=== PATIENT | female | born 1980 | race Caucasian/White ===

== ENCOUNTER 2017-12-16 01:14 | Emergency (ER) | payer OTHER ==
--- NOTE | 2017-12-16 01:28 | PDOC ---
History of Present Illness - General Stated Complaint: FEVER Time Seen by Provider: 12/16/17 01:28 - History of Present Illness Initial Comments: 12/16/17 01:28 Ms. Paz is a 37 yo female w/ pmh of anemia, recently evaluated 12/06/17 for ear pain and headache who presents w/ complaints of 1 day history of left sided ear pain with intermittent fevers/chills for the past day. She reports she took ofloxacin otic drops for 8 days following her 12/06 visit until she ran out. She is currently taking Amoxicillin 500mg TID (7 day course) in preparation for a dental procedure. She took tylenol around midnight tonight for her fever. The patient denies chest pain, shortness of breath, headache and dizziness. Denies nausea, vomit, diarrhea and constipation. Denies dysuria, frequency, urgency and hematuria. Allergies: NKDA Past History - Past Medical History Allergies/Adverse Reactions: Allergies Allergy/AdvReac Type Severity Reaction Status Date / Time No Known Allergies Allergy Verified 12/16/17 01:19 Home Medications: Ambulatory Orders No Home Medications 0 dose .ROUTE UTDICT 05/01/12 Naproxen [Naprosyn -] 500 mg PO BID PRN #14 tablet 10/11/14 Ibuprofen [Motrin -] 400 mg PO Q6H PRN #28 tablet 06/13/15 Metoclopramide HCl [Reglan] 10 mg PO Q6H PRN #15 tablet 06/13/15 Fluticasone Propionate [Flonase Allergy Relief] 15.8 ml NS PRN PRN #1 bottle 08/20 Ofloxacin Otic [Floxin Otic -] 10 drop OT BID 10 Days #1 bottle 12/05/17 Acetic Acid 2% Otic Soln [Vosol 2% Ear Drops -] 3 drop AU TID PRN #1 bottle 09/20 Acetic Acid 2% Otic Soln [Vosol 2% Ear Drops -] 3 drop AU TID PRN #1 bottle Anemia: Yes Asthma: No Cancer: No Cardiac Disorders: No COPD: No Diabetes: No HTN: No Seizures: No Thyroid Disease: No - Immunization History Immunization Up to Date: Yes - Suicide/Smoking/Psychosocial Hx Smoking Status: No Smoking History: Never smoked Have you smoked in the past 12 months: No Number of Cigarettes Smoked Daily: 0 Hx Alcohol Use: No Drug/Substance Use Hx: No Substance Use Type: None Hx Substance Use Treatment: No Review of Systems - Review of Systems Comments:: 12/16/17 01:53 GENERAL/CONSTITUTIONAL: +Subjective fever/chills. No weakness. HEAD, EYES, EARS, NOSE AND THROAT: No change in vision. No ear pain or discharge. No sore throat. CARDIOVASCULAR: No chest pain or shortness of breath RESPIRATORY: No cough, wheezing, or hemoptysis. GASTROINTESTINAL: No nausea, vomiting, diarrhea or constipation. GENITOURINARY: No dysuria, frequency, or change in urination. MUSCULOSKELETAL: No joint or muscle swelling or pain. No neck or back pain. SKIN: No rash NEUROLOGIC: No headache, vertigo, loss of consciousness, or change in strength/ sensation. ENDOCRINE: No increased thirst. No abnormal weight change HEMATOLOGIC/LYMPHATIC: No anemia, easy bleeding, or history of blood clots. ALLERGIC/IMMUNOLOGIC: No hives or skin allergy. *Physical Exam - Physical Exam Comments: 12/16/17 01:54 GENERAL: Awake, alert, and fully oriented, in no acute distress HEAD: No signs of trauma, normocephalic, atraumatic EYES: PERRLA, EOMI, sclera anicteric, conjunctiva clear ENT: +Left EAC inflammed appearing. TM's normal. Auricles normal inspection, hearing grossly normal, nares patent, oropharynx clear without exudates. Moist mucosa NECK: Normal ROM, supple, no lymphadenopathy, JVD, or masses LUNGS: No distress, speaks full sentences, clear to auscultation bilaterally HEART: Regular rate and rhythm, normal S1 and S2, no murmurs, rubs or gallops, peripheral pulses normal and equal bilaterally. ABDOMEN: Soft, nontender, normoactive bowel sounds. No guarding, no rebound. No masses EXTREMITIES: Normal inspection, Normal range of motion, no edema. No clubbing or cyanosis. NEUROLOGICAL: Cranial nerves II through XII grossly intact. Normal speech, normal gait, no focal sensorimotor deficits SKIN: Warm, Dry, normal turgor, no rashes or lesions noted. Medical Decision Making - Medical Decision Making 12/16/17 01:58 Ms. Paz is a 37 yo female w/ pmh as described who presents for evaluation of ear pain with fever/chills. Patient currently taking ABX as described; reports relief from symptoms with Acetic Acid otic solution. Repeat Rx sent to patient's pharmacy, will d/c for outpatient ENT follow-up for further evaluation. *DC/Admit/Observation/Transfer Diagnosis at time of Disposition: Fever and chills Ear pain Qualifiers: Laterality: left Qualified Code(s): H92.02 - Otalgia, left ear - Discharge Dispostion Disposition: HOME - Prescriptions Prescriptions: Acetic Acid 2% Otic Soln [Vosol 2% Ear Drops -] 3 drop AU TID PRN #1 bottle PRN Reason: Pain - Referrals Referrals: Zena Aviles [Primary Care Provider] - - Patient Instructions Printed Discharge Instructions: DI for Fever (Symptom) -- Adult Additional Instructions: Please follow-up with ENT in 1-2 days for further evaluation. Take all medications as proscribed. Return to ER if any increase in pain, fever, chills, difficulty hearing, or other concerning symptoms. - Post Discharge Activity
[2017-12-16 01:50] VITALS: BP 109/81; PULSE 105; TEMP 99.5
--- NOTE | 2017-12-16 01:55 | PDOC ---
Attending Attestation - Resident Resident Name: Darius Mckeon - ED Attending Attestation I have performed the following: I have examined & evaluated the patient, The case was reviewed & discussed with the resident, I agree w/resident's findings & plan, Exceptions are as noted - HPI HPI: 12/18/17 17:37 Ms. Paz is a 37 yo female w/ pmh of anemia, recently evaluated 12/06/17 for ear pain and headache, started on ofloxacin otic drops x 8 days Pt who presents w/ complaints of 1 day history of left sided ear pain with intermittent fevers/chills She is currently taking Amoxicillin 500mg TID (7 day course) in preparation for a dental procedure. No tinnitus No nuchal rigidity No ill contacts No drainage from ear 12/18/17 17:44 - Physicial Exam PE: 12/18/17 17:38 GENERAL: Awake, alert, and fully oriented, in no acute distress HEAD: No signs of trauma, normocephalic, atraumatic EYES: PERRLA, EOMI, sclera anicteric, conjunctiva clear ENT: +Left EAC inflammed appearing. TM's normal. Auricles normal inspection, hearing grossly normal, nares patent, oropharynx clear without exudates. Moist mucosa, no mastoid tenderness NECK: Normal ROM, supple, no lymphadenopathy, JVD, or masses LUNGS: No distress, speaks full sentences, clear to auscultation bilaterally HEART: Regular rate and rhythm, normal S1 and S2, no murmurs, rubs or gallops, peripheral pulses normal and equal bilaterally. 12/18/17 17:45 - Medical Decision Making 12/18/17 17:39 37 yo F presenting with ear pain Already on Amoxicillin Will give pt Acetic acid drops Will ask pt to continue Amoxicillin Pt has already followed up with ENT Will ask her to make an other appointment with them within 1-2 days Clinical Impression: ENT
== END 2017-12-16 02:17 | disposition home or self-care (01) ==
LOC: JER 01:14
DX: R50.9 Fever, unspecified (principal); H92.02 Otalgia, left ear; D64.9 Anemia, unspecified
CPT/HCPCS: 99281-25